=== PATIENT | male | born 1950 | race Caucasian/White ===

== ENCOUNTER 2019-02-26 00:02 | Emergency (ER) | payer MEDICARE, BC ==
--- NOTE | 2019-02-26 01:40 | ED ---
Throat Pain/Nasal Congestion - HPI Summary HPI Summary: This patient is a 68 year old M presenting to [facility] accompanied by with a chief complaint of floaters in R eye that began [employer]. The patient rates the pain 0/10 in severity. Symptoms aggravated by nothing. Symptoms alleviated by nothing. Patient reports sneezing and flashes of light in his R eye. Patient denies weakness, numbness, headache, and abd pain. - History of Current Complaint Chief Complaint: EDEyeProblem Time Seen by Provider: 02/26/19 01:22 Hx Obtained From: Patient Onset/Duration: Sudden Onset, Lasting Hours, Still Present Severity: Mild Cough: None - Allergies/Home Medications Allergies/Adverse Reactions: Allergies Allergy/AdvReac Type Severity Reaction Status Date / Time No Known Allergies Allergy Verified 02/26/19 01:15 Home Medications: Home Medications Lisinopril 20 mg PO DAILY 02/26/19 [History Confirmed 02/26/19] Simvastatin [Zocor] 40 mg PO DAILY 02/26/19 [History Confirmed 02/26/19] PMH/Surg Hx/FS Hx/Imm Hx Previously Healthy: Yes Opthamlomology History: Denies: Hx Legally Blind EENT History: Denies: Hx Deafness - Immunization History Date of Tetanus Vaccine: utd Date of Influenza Vaccine: fall 2018 Infectious Disease History: Yes Infectious Disease History: Denies: Traveled Outside the [place] in Last 30 Days - Family History Known Family History: Positive: Diabetes - Social History Occupation: Retired Lives: With Family Alcohol Use: Weekly Hx Substance Use: No Substance Use Type: Reports: None Hx Tobacco Use: No Smoking Status (MU): Never Smoked Tobacco Review of Systems Positive: Other - Positive floaters in right eye and flashes of light in R eye Positive: Other - Positive sneezing Negative: Abdominal Pain Negative: Headache, Weakness, Numbness All Other Systems Reviewed And Are Negative: Yes Physical Exam - Summary Physical Exam Summary: Appearance: Well appearing, no pain distress Skin: warm, dry, reflects adequate perfusion Head/face: normal Eyes: EOMI, JUANPABLO ENT: normal Neck: supple, non-tender Respiratory: CTA, breath sounds present Cardiovascular: RRR, pulses symmetrical Abdomen: non-tender, soft Musculoskeletal: normal, strength/ROM intact Neuro: normal, sensory motor intact, A&Ox3 Triage Information Reviewed: Yes Vital Signs On Initial Exam: Initial Vitals Temp Pulse Resp BP Pulse Ox 98.1 F 71 18 189/106 95 02/26/19 00:15 02/26/19 00:15 02/26/19 00:15 02/26/19 00:15 02/26/19 00:15 Vital Signs Reviewed: Yes Diagnostics - Vital Signs Vital Signs Temp Pulse Resp BP Pulse Ox 02/26/19 00:15 98.1 F 71 18 189/106 95 - Laboratory Result Diagrams: 02/26/19 01:58 02/26/19 01:58 Lab Statement: Any lab studies that have been ordered have been reviewed, and results considered in the medical decision making process. - CT Brain CT CT Interpretation Completed By: Radiologist Summary of CT Findings: Brain CT reveals, per radiologist, 1. No acute intracranial pathology. 2. No obvious CT abnormality of the globes or orbits. ED physician has reviewed this radiology report. EENT Course/Dx - Course Course Of Treatment: This patient is a 68 year old M presenting to [facility] accompanied by with a chief complaint of floaters in R eye that began [employer]. Patient reports flashes of light in his R eye. Physical Exam Findings: Nml. Brain CT reveals, per radiologist, 1. No acute intracranial pathology. 2. No obvious CT abnormality of the globes or orbits. Bloodwork obtained. Patient advised to stay in hospital to have a stroke work up, as the symptoms may be related to a TIA. The patient refused admission and requested to follow up with PCP. Patient advised to follow up with PCP as soon as possible. Patient will be discharged with follow up from PCP. The patient is agreeable with this plan. - Differential Diagnoses Differential Diagnoses: Other - tia/floaters eye - Diagnoses Provider Diagnoses: Blurry vision, Floaters in visual field, TIA (transient ischemic attack) Discharge - Sign-Out/Discharge Documenting (check all that apply): Patient Departure - Discharge home Patient Received Moderate/Deep Sedation with Procedure: No - Discharge Plan Condition: Stable Disposition: HOME Patient Education Materials: Blurred Vision (ED), Visual Floaters (ED) Referrals: [facility] REFERR[facility] [Outside] - As Soon As Possible Additional Instructions: RETURN TO THE EMERGENCY DEPARTMENT FOR NEW OR WORSENING SYMPTOMS - Billing Disposition and Condition Condition: STABLE Disposition: Home - Attestation Statements Document Initiated by Scribe: Yes Documenting Scribe: Aleyda Weinstein Provider For Whom Scribe is Documenting (Include Credential): Dr. Jorden Calabrese MD Scribe Attestation: I, Aleyda Weinstein, scribed for Dr. Jorden Calabrese MD on 02/26/19 at 0427. Scribe Documentation Reviewed: Yes Provider Attestation: The documentation as recorded by the mamieibAleyda moise accurately reflects the service I personally performed and the decisions made by me, Dr. Jorden Calabrese MD Status of Scribe Document: Viewed
[2019-02-26 02:08] LABS: ABS Basophils 0.1 10^3/ul (0-0.2); ABS Eosinophils 0.2 10^3/ul (0-0.6); ABS Lymphocytes 1.9 10^3/ul (1.0-4.8); ABS Monocytes 0.6 10^3/ul (0-0.8); ABS Neutrophils 5.6 10^3/ul (1.5-7.7); ABS Nucleated RBC 0 10^3/ul; Hematocrit 41 % (36-46); Hemoglobin 14.1 g/dL (14.0-18.0); Lymphocyte % 22.4 %; Mean Corpuscular HGB Conc 34 g/dL (31-36); Mean Corpuscular Hemoglobin 32 pg (27-31); Mean Corpuscular Volume 93 fL (80-94); Nucleated Red Blood Cells % 0; Platelet Count 195 10^3/uL (150-450); Red Blood Count 4.39 10^6 /uL (4.18-5.48); Red Cell Distribution Width 13 % (10.5-15); White Blood Count 8.3 10^3/uL (3.5-10.8)
[2019-02-26 02:16] LABS: INR 1.03 (0.82-1.09)
[2019-02-26 02:40] LABS: Albumin 4.2 g/dL (3.2-5.2); BUN/Creatinine Ratio 26.7 (8-20); Calcium 9.3 mg/dL (8.6-10.3); EGFR Non-African American 88.4 (>60); Potassium 4.4 mmol/L (3.5-5.0); Total Bilirubin 0.4 mg/dL (0.2-1.0)
[2019-02-26 03:10] LABS: Albumin/Globulin Ratio 1.7 (1-3); Globulin 2.5 g/dL (2-4); Total Protein 6.7 g/dL (6.4-8.9)
[2019-02-26 04:01] VITALS: BP 158/89
== END 2019-02-26 04:00 | disposition home or self-care (01) ==
LOC: ED 00:02
DX: G45.9 Transient cerebral ischemic attack, unspecified (principal); H53.8 Other visual disturbances; H43.391 Other vitreous opacities, right eye
CPT/HCPCS: 36415; 70450; 80053; 85025; 85610; 85730; 99283